=== PATIENT | female | born 1985 | race African-American/Black ===

== ENCOUNTER 2022-02-21 14:34 | Inpatient (IN) | payer OTHER ==
[~2022-02-21] VITALS: Ht 162.6 cm; Wt 103.9 kg
[2022-02-21] MEDS ORDERED: ONDANSETRON HCL 4 MG/2 ML VIAL IVP PRN (16:00)
[2022-02-21] MEDS ORDERED: TERBUTALINE SULFATE 2.5 MG TABLET PO PRN (16:00)
[2022-02-21] MEDS ORDERED: TERBUTALINE SULFATE 1 MG/ML VIAL SUBCUT ONE (16:00)
[2022-02-21] MEDS ORDERED: TERBUTALINE SULFATE 1 MG/ML VIAL SUBCUT PRN (16:00)
[2022-02-21 16:51] LABS: BASOPHILS % (AUTO) 0.6 % (0.0-2.0); EOSINOPHILS % (AUTO) 0.3 % (0.0-4.0); HEMATOCRIT 34.1 % (36-48); HEMOGLOBIN 11.2 g/dL (12.0-16.0); LYMPHOCYTES # (AUTO) 1.7 K/uL (1.0-5.5); LYMPHOCYTES % (AUTO) 25.5 % (20.5-51.5); MEAN CORPUSCULAR HEMOGLOBIN 26 pg (27-31); MEAN CORPUSCULAR HGB CONC 33 % (32-36); MEAN CORPUSCULAR VOLUME 78 fL (79.0-98.0); MONOCYTES # (AUTO) 0.5 K/uL (0.0-1.0); MONOCYTES % (AUTO) 7.1 % (1.7-9.3); NEUTROPHILS # (AUTO) 4.5 K/uL (1.8-7.7); NEUTROPHILS % (AUTO) 66.5 % (40.0-70.0); PLATELET COUNT (AUTO) 147 K/uL (130-430); RED BLOOD CELL COUNT(AUTO) 4.38 MIL/uL (4.2-6.2); WHITE BLOOD COUNT (AUTO) 6.8 K/uL (4.8-10.8)
[2022-02-21 16:59] LABS: CALCIUM 8.6 mg/dL (8.4-11.0); CREATININE 0.47 mg/dL (0.55-1.30)
[2022-02-21 17:04] LABS: ALBUMIN 2.3 g/dL (3.4-4.8); TOTAL BILIRUBIN 0.1 mg/dL (0.0-1.0)
[2022-02-21] MEDS ORDERED: METOCLOPRAMIDE HCL 10 MG/2 ML VIAL IVP ONE (18:30)
[2022-02-21 19:36] VITALS: BP_SYST 148
[2022-02-22] MEDS: D5LR 1,000 ML IV SCH ×2 (01:39→03:00)
[2022-02-22] MEDS: METOCLOPRAMIDE HCL 10 MG/2 ML VIAL IVP SCH ×4 (01:52→19:41)
[2022-02-23] MEDS: METOCLOPRAMIDE HCL 10 MG/2 ML VIAL IVP SCH ×4 (01:16→18:14)
[2022-02-23] MEDS: D5LR 1,000 ML IV SCH ×2 (03:27→17:15)
[2022-02-23] MEDS: guaiFENesin/DEXTROMETHORPHAN 10 ML UDC PO PRN (23:23)
[2022-02-23] MEDS: TEMAZEPAM 15 MG CAPSULE PO PRN (23:23)
[2022-02-24] MEDS: guaiFENesin/DEXTROMETHORPHAN 10 ML UDC PO PRN ×6 (03:28→23:31)
[2022-02-24] MEDS: METOCLOPRAMIDE HCL 10 MG/2 ML VIAL IVP SCH ×5 (05:59→23:31)
[2022-02-24] MEDS: D5LR 1,000 ML IV SCH (07:30)
[2022-02-24] MEDS: ALBUTEROL SULFATE 0.083% 2.5 MG/3 ML VIAL.NEB INH PRN ×2 (14:42→23:53)
[2022-02-24 15:04] VITALS: BP_SYST 148
[2022-02-24] MEDS: ACETAMINOPHEN 325 MG TABLET PO PRN ×2 (16:22→23:12)
[2022-02-25] MEDS: TEMAZEPAM 15 MG CAPSULE PO PRN (00:11)
[2022-02-25] MEDS: D5LR 1,000 ML IV SCH ×2 (00:21→21:09)
[2022-02-25] MEDS: guaiFENesin/DEXTROMETHORPHAN 10 ML UDC PO PRN ×5 (03:38→21:05)
[2022-02-25] MEDS: METOCLOPRAMIDE HCL 10 MG/2 ML VIAL IVP SCH ×4 (06:11→23:50)
[2022-02-25] MEDS: BENZOCAINE/MENTHOL 1 EACH LOZENGE MM PRN ×4 (06:33→18:40)
[2022-02-25] MEDS: ACETAMINOPHEN 325 MG TABLET PO PRN ×3 (08:53→21:08)
[2022-02-25] MEDS: ALBUTEROL SULFATE 0.083% 2.5 MG/3 ML VIAL.NEB INH PRN ×4 (09:22→22:14)
[2022-02-25] MEDS: NEOMYCIN/POLYMYX B/HYDROCORTISONE 10 ML EAR DROPS.SUSP OT SCH ×3 (10:50→19:57)
[2022-02-25] MEDS ORDERED: ALBUTEROL SULFATE 0.083% 2.5 MG/3 ML VIAL.NEB INH ONE (19:05)
[2022-02-25] MEDS ORDERED: BENZOCAINE/MENTHOL 1 EACH LOZENGE ONE (19:42)
[2022-02-26] MEDS: TEMAZEPAM 15 MG CAPSULE PO PRN
[2022-02-26] MEDS: BENZOCAINE/MENTHOL 1 EACH LOZENGE MM PRN ×8 (00:21→22:06)
[2022-02-26] MEDS: guaiFENesin/DEXTROMETHORPHAN 10 ML UDC PO PRN ×6 (01:03→20:17)
[2022-02-26] MEDS: ALBUTEROL SULFATE 0.083% 2.5 MG/3 ML VIAL.NEB INH PRN ×2 (03:08→07:34)
[2022-02-26] MEDS: ACETAMINOPHEN 325 MG TABLET PO PRN ×3 (03:20→15:04)
[2022-02-26] MEDS: NEOMYCIN/POLYMYX B/HYDROCORTISONE 10 ML EAR DROPS.SUSP OT SCH ×5 (04:39→16:05)
[2022-02-26] MEDS: METOCLOPRAMIDE HCL 10 MG/2 ML VIAL IVP SCH ×3 (06:06→18:01)
[2022-02-26] MEDS: D5LR 1,000 ML IV SCH (06:07)
[2022-02-26] MEDS: ALBUTEROL SULFATE 0.083% 2.5 MG/3 ML VIAL.NEB INH SCH ×3 (11:10→19:34)
[2022-02-27] MEDS: METOCLOPRAMIDE HCL 10 MG/2 ML VIAL IVP SCH ×3 (00:10→17:36)
[2022-02-27] MEDS: TEMAZEPAM 15 MG CAPSULE PO PRN (00:10)
[2022-02-27] MEDS: guaiFENesin/DEXTROMETHORPHAN 10 ML UDC PO PRN ×6 (00:10→20:41)
[2022-02-27] MEDS: BENZOCAINE/MENTHOL 1 EACH LOZENGE MM PRN ×8 (00:10→14:00)
[2022-02-27] MEDS: D5LR 1,000 ML IV SCH (02:04)
[2022-02-27] MEDS: ALBUTEROL SULFATE 0.083% 2.5 MG/3 ML VIAL.NEB INH SCH ×6 (03:24→23:14)
[2022-02-27] MEDS: NEOMYCIN/POLYMYX B/HYDROCORTISONE 10 ML EAR DROPS.SUSP OT SCH ×4 (08:00→21:30)
[2022-02-27] MEDS ORDERED: ALBUTEROL SULFATE 0.083% 2.5 MG/3 ML VIAL.NEB INH ONE ×2 (08:43→15:46)
[2022-02-27] MEDS: DEXTROMET/BENZOCAIN/MENTHOL SF 1 LOZENGE MM PRN (21:35)
[2022-02-27] MEDS: ACETAMINOPHEN 325 MG TABLET PO PRN (22:49)
[2022-02-28] MEDS: NEOMYCIN/POLYMYX B/HYDROCORTISONE 10 ML EAR DROPS.SUSP OT SCH ×7 (00:43→21:00)
[2022-02-28] MEDS: guaiFENesin/DEXTROMETHORPHAN 10 ML UDC PO PRN ×6 (00:49→21:12)
[2022-02-28] MEDS: DEXTROMET/BENZOCAIN/MENTHOL SF 1 LOZENGE MM PRN ×5 (00:49→21:11)
[2022-02-28] MEDS: METOCLOPRAMIDE HCL 10 MG/2 ML VIAL IVP SCH ×4 (00:50→18:53)
[2022-02-28] MEDS ORDERED: ALBUTEROL SULFATE 0.083% 2.5 MG/3 ML VIAL.NEB INH PRN (09:06)
[2022-02-28] MEDS: ACETAMINOPHEN 325 MG TABLET PO PRN (11:42)
[2022-02-28] MEDS: ALBUTEROL SULFATE 0.083% 2.5 MG/3 ML VIAL.NEB INH SCH ×4 (11:44→23:31)
[2022-02-28] MEDS: AMOXICILLIN/CLAVULANATE POTASSIUM 500 MG TABLET PO SCH ×2 (14:01→22:02)
[2022-02-28] MEDS: D5LR 1,000 ML IV SCH (22:02)
[2022-03-01] MEDS: TEMAZEPAM 15 MG CAPSULE PO PRN (00:15)
[2022-03-01] MEDS: METOCLOPRAMIDE HCL 10 MG/2 ML VIAL IVP SCH ×4 (00:37→17:33)
[2022-03-01] MEDS: guaiFENesin/DEXTROMETHORPHAN 10 ML UDC PO PRN ×6 (00:38→20:40)
[2022-03-01] MEDS: DEXTROMET/BENZOCAIN/MENTHOL SF 1 LOZENGE MM PRN ×3 (00:43→20:43)
[2022-03-01] MEDS: NEOMYCIN/POLYMYX B/HYDROCORTISONE 10 ML EAR DROPS.SUSP OT SCH ×4 (00:50→20:43)
[2022-03-01] MEDS: ALBUTEROL SULFATE 0.083% 2.5 MG/3 ML VIAL.NEB INH SCH ×6 (03:53→23:09)
[2022-03-01] MEDS: AMOXICILLIN/CLAVULANATE POTASSIUM 500 MG TABLET PO SCH ×3 (05:46→21:46)
[2022-03-01] MEDS: SENNOSIDES 8.6 MG TABLET PO SCH (20:40)
[2022-03-02] MEDS: guaiFENesin/DEXTROMETHORPHAN 10 ML UDC PO PRN ×5 (00:12→17:12)
[2022-03-02] MEDS: METOCLOPRAMIDE HCL 10 MG/2 ML VIAL IVP SCH ×4 (00:12→17:58)
[2022-03-02] MEDS: TEMAZEPAM 15 MG CAPSULE PO PRN (00:12)
[2022-03-02] MEDS: NEOMYCIN/POLYMYX B/HYDROCORTISONE 10 ML EAR DROPS.SUSP OT SCH ×2 (00:16→04:37)
[2022-03-02] MEDS: DEXTROMET/BENZOCAIN/MENTHOL SF 1 LOZENGE MM PRN ×2 (00:16→04:38)
[2022-03-02] MEDS: ALBUTEROL SULFATE 0.083% 2.5 MG/3 ML VIAL.NEB INH SCH ×6 (04:52→23:50)
[2022-03-02] MEDS: AMOXICILLIN/CLAVULANATE POTASSIUM 500 MG TABLET PO SCH ×3 (05:24→21:47)
[2022-03-02] MEDS ORDERED: BETAMET ACET/BETAMET NA PH 30 MG/5 ML VIAL IM ONE (07:45)
[2022-03-02] MEDS ORDERED: DOCUSATE SODIUM 100 MG CAPSULE PO SCH (09:00)
[2022-03-02] MEDS: SENNOSIDES 8.6 MG TABLET PO SCH (21:48)
[2022-03-03] MEDS ORDERED: ALBUTEROL SULFATE 0.083% 2.5 MG/3 ML VIAL.NEB INH ONE (00:10)
[2022-03-03] MEDS: TEMAZEPAM 15 MG CAPSULE PO PRN ×2 (00:11→23:32)
[2022-03-03] MEDS: METOCLOPRAMIDE HCL 10 MG/2 ML VIAL IVP SCH ×4 (00:12→23:42)
[2022-03-03] MEDS: ALBUTEROL SULFATE 0.083% 2.5 MG/3 ML VIAL.NEB INH SCH ×6 (03:00→23:21)
[2022-03-03] MEDS: AMOXICILLIN/CLAVULANATE POTASSIUM 500 MG TABLET PO SCH ×3 (06:20→22:07)
[2022-03-03] MEDS ORDERED: BETAMET ACET/BETAMET NA PH 30 MG/5 ML VIAL IM ONE (09:15)
[2022-03-03] MEDS: SENNOSIDES 8.6 MG TABLET PO SCH (22:08)
[2022-03-04] MEDS: METOCLOPRAMIDE HCL 10 MG/2 ML VIAL IVP SCH ×2 (05:59→14:10)
[2022-03-04] MEDS: AMOXICILLIN/CLAVULANATE POTASSIUM 500 MG TABLET PO SCH ×4 (06:00→21:51)
[2022-03-04] MEDS: ALBUTEROL SULFATE 0.083% 2.5 MG/3 ML VIAL.NEB INH SCH ×6 (11:39→23:00)
[2022-03-04] MEDS: SENNOSIDES 8.6 MG TABLET PO SCH (21:50)
[2022-03-04] MEDS: TEMAZEPAM 15 MG CAPSULE PO PRN (21:51)
[2022-03-05] MEDS: METOCLOPRAMIDE HCL 10 MG/2 ML VIAL IVP SCH ×4 (00:03→17:59)
[2022-03-05] MEDS: ALBUTEROL SULFATE 0.083% 2.5 MG/3 ML VIAL.NEB INH SCH ×6 (03:00→23:00)
[2022-03-05] MEDS: AMOXICILLIN/CLAVULANATE POTASSIUM 500 MG TABLET PO SCH ×2 (06:08→13:58)
[2022-03-05] MEDS ORDERED: DINOPROSTONE 10 MG SUPP VG ONE (21:30)
[2022-03-06] MEDS: METOCLOPRAMIDE HCL 10 MG/2 ML VIAL IVP SCH ×2 (01:03→05:52)
[2022-03-06] MEDS: ALBUTEROL SULFATE 0.083% 2.5 MG/3 ML VIAL.NEB INH SCH ×2 (03:00→07:00)
[2022-03-06] MEDS: AMOXICILLIN/CLAVULANATE POTASSIUM 500 MG TABLET PO SCH ×2 (05:52→14:02)
== END 2022-03-07 05:25 | disposition home or self-care (01) | DRG 832 ==
LOC: SPU 14:34
PROVIDERS: ADMIT Specialist; ATTEND Specialist
DX: O36.5930 Maternal care for other known or suspected poor fetal growth, third trimester, not applicable or unspecified (principal); O41.03X0 Oligohydramnios, third trimester, not applicable or unspecified; O99.513 Diseases of the respiratory system complicating pregnancy, third trimester; Z3A.34 34 weeks gestation of pregnancy; J45.909 Unspecified asthma, uncomplicated; Z20.822 Contact with and (suspected) exposure to COVID-19
CPT/HCPCS: 36415; 80053; 85025; 86592; 86886; 86900; 86901; 87536; 94640; 94664; 94760; J0702; J2765; J7060; J7120; J7613